=== PATIENT | male | born 1950 | race African-American/Black ===

== ENCOUNTER 2016-08-15 01:18 | Emergency (ER) | payer BC, MEDICARE ==
[~2016-08-15] VITALS: Ht 182.9 cm; Wt 82.0 kg
[2016-08-15] MEDS ORDERED: MORPHINE SULFATE 4 MG/ML CPJ (NOT FOR IM USE) IV ONE (03:45)
[2016-08-15] MEDS ORDERED: ONDANSETRON HCL 4MG/2ML VIAL IV ONE (03:45)
[2016-08-15 04:21] LABS: HEMATOCRIT. 21.8 % (42.0-52.0); HEMOGLOBIN. 7.2 g/dL (14.0-18.0); MEAN CORPUSCULAR HEMOGLOBIN 27.1 pg (28.0-32.0); MEAN CORPUSCULAR VOLUME 82.3 fL (80.0-94.0); MEAN PLATELET VOLUME 6.9 fl (7.4-10.4); PLATELET 218 x1000/uL (130-400); RED BLOOD CELL COUNT 2.65 mill/uL (4.7-6.1); RED CELL DISTRIBUTION WIDTH 15.9 % (11.6-14.6); WHITE BLOOD COUNT 5.6 x1000/uL (4.5-11.0)
[2016-08-15 04:25] LABS: DIFFERENTIAL COMMENT 1
[2016-08-15 04:36] LABS: PROTHROMBIN TIME 10.5 sec
[2016-08-15 04:37] LABS: ALANINE AMINOTRANSFERASE 25 IU/L (13-61); ALBUMIN 2.5 g/dL (3.4-5.0); ANION GAP 11; CALCIUM 8.1 mg/dL (8.5-10.1); CARBON DIOXIDE 24 mEq/L (21-32); CHLORIDE 106 mEq/L (98-107); INDEX HEMOLYSI 1 (1-3); INDEX ICTERIC 1 (1-4); INDEX LIPEMIC 1 (1-3); UREA NITROGEN BLOOD 38 mg/dL (7-21); eGFR 46 mL/min (>60)
[2016-08-15 05:45] VITALS: BP 150/81
[2016-08-15 07:11] LABS: PLATELET ESTIMATE NORMAL
== END 2016-08-15 06:54 | disposition home or self-care (01) ==
LOC: ER 01:38
DX: M19.012 Primary osteoarthritis, left shoulder (principal); G89.29 Other chronic pain; C15.9 Malignant neoplasm of esophagus, unspecified; N28.9 Disorder of kidney and ureter, unspecified; E11.9 Type 2 diabetes mellitus without complications; D63.0 Anemia in neoplastic disease
CPT/HCPCS: 36415; 71010; 73030; 80053; 85025; 85610; 93005; 96374; 96375; 99285; J2270; J2405

== ENCOUNTER 2016-08-16 19:56 | Emergency (ER) | payer MEDICARE ==
[~2016-08-16] VITALS: Ht 182.9 cm; Wt 68.0 kg
[2016-08-16 21:18] VITALS: BP 154/63
[2016-08-16] MEDS ORDERED: MORPHINE SULFATE 10 MG/ML CPJ IM ONE (22:15)
[2016-08-16] MEDS ORDERED: KETOROLAC 60MG/2ML VIAL IM ONE (22:15)
[2016-08-16] MEDS ORDERED: ONDANSETRON 4MG ODT PO ONE (22:15)
== END 2016-08-16 23:17 | disposition home or self-care (01) ==
LOC: ER 22:24
DX: M19.012 Primary osteoarthritis, left shoulder (principal); E11.9 Type 2 diabetes mellitus without complications
CPT/HCPCS: 96372; 99284; J1885; J2270; Q0162; A4565

== ENCOUNTER 2016-08-21 08:54 | Emergency (ER) | payer MEDICARE ==
[~2016-08-21] VITALS: Ht 182.9 cm; Wt 72.0 kg
[2016-08-21] MEDS ORDERED: ONDANSETRON HCL 4MG/2ML VIAL IV STA (09:22)
[2016-08-21] MEDS ORDERED: SODIUM CHLORIDE 0.9% 1,000 ML IV ONE (09:22)
[2016-08-21] MEDS ORDERED: MORPHINE SULFATE 4 MG/ML CPJ (NOT FOR IM USE) IV STA (09:22)
[2016-08-21 09:43] LABS: HEMATOCRIT. 23.7 % (42.0-52.0); HEMOGLOBIN. 7.8 g/dL (14.0-18.0); MEAN CORPUSCULAR HEMOGLOBIN 27.1 pg (28.0-32.0); MEAN CORPUSCULAR HGB CONC 32.8 g/dL (31.0-37.0); MEAN CORPUSCULAR VOLUME 82.6 fL (80.0-94.0); MEAN PLATELET VOLUME 6.8 fl (7.4-10.4); PLATELET 264 x1000/uL (130-400); RED BLOOD CELL COUNT 2.87 mill/uL (4.7-6.1); RED CELL DISTRIBUTION WIDTH 15.6 % (11.6-14.6); WHITE BLOOD COUNT 8.5 x1000/uL (4.5-11.0)
[2016-08-21 09:45] LABS: DIFFERENTIAL COMMENT 1
[2016-08-21] MEDS ORDERED: LORAZEPAM 2MG/ML CPJ IV ONE (09:45)
[2016-08-21 09:51] LABS: PARTIAL THROMBOPLASTIN TIME 26.2 sec (24.0-34.0); PROTHROMBIN TIME 10.4 sec
[2016-08-21] MEDS ORDERED: LORAZEPAM 2MG/ML CPJ ONE (09:52)
[2016-08-21 10:00] LABS: ALANINE AMINOTRANSFERASE 29 IU/L (13-61); ALBUMIN 2.7 g/dL (3.4-5.0); ANION GAP 19; CALCIUM 8.7 mg/dL (8.5-10.1); CARBON DIOXIDE 19 mEq/L (21-32); CHLORIDE 107 mEq/L (98-107); CREATINE KINASE 132 IU/L (39-308); INDEX HEMOLYSI 1 (1-3); INDEX ICTERIC 1 (1-4); INDEX LIPEMIC 1 (1-3); LIPASE 95 IU/L (73-393); NT PRO B-TYPE NATRIURETIC PEP 3466 pg/mL (5-125); UREA NITROGEN BLOOD 49 mg/dL (7-21); eGFR 35 mL/min (>60)
[2016-08-21] MEDS ORDERED: PHENYTOIN SODIUM 500 MG in SODIUM CHLORIDE 0.9% 50 ML IV ONE (10:00)
[2016-08-21] MEDS ORDERED: DEXAMETHASONE 10MG/ML 1ML VIAL IV ONE (10:00)
[2016-08-21 10:02] LABS: LACTIC ACID 5.3 mmol/L (0.4-2.0)
[2016-08-21 10:47] LABS: PLATELET ESTIMATE NORMAL
[2016-08-21] MEDS ORDERED: MANNITOL 12.5G (25%) VIAL 50ML IV ONE (11:00)
[2016-08-21] MEDS ORDERED: MANNITOL 20% 350 ML IV ONE (11:00)
[2016-08-21 11:12] VITALS: BP 164/91
[2016-08-21] MEDS ORDERED: LABETALOL HCL 20MG/4ML CARPUJECT IV ONE (11:45)
== END 2016-08-21 12:58 | disposition short-term general hospital (02) ==
LOC: ER 09:39
DX: C15.9 Malignant neoplasm of esophagus, unspecified (principal); C79.31 Secondary malignant neoplasm of brain; I62.9 Nontraumatic intracranial hemorrhage, unspecified; G40.909 Epilepsy, unspecified, not intractable, without status epilepticus; M19.90 Unspecified osteoarthritis, unspecified site; E78.00 Pure hypercholesterolemia, unspecified; I10 Essential (primary) hypertension; I50.9 Heart failure, unspecified; D63.0 Anemia in neoplastic disease; E87.2 Acidosis; Z85.01 Personal history of malignant neoplasm of esophagus; Z93.1 Gastrostomy status
CPT/HCPCS: 36415; 70450; 71010; 73030; 80053; 82550; 83605; 83690; 83880; 84443; 84484; 85025; 85610; 85730; 87040; 93005; 96361; 96365; 96368; 96375; 99291; J1100; J1165; J2060; J2150; J2270; J2405; J3490; J7030